=== PATIENT | male | born 1935 | race Caucasian/White ===

== ENCOUNTER → 2016-06-19 | Outpatient (CLI) | payer OTHER, MEDICARE ==
[~2016-06-19] VITALS: Ht 154.9 cm; Wt 89.6 kg
[~2016-06-19] MED LIST: ALBUAER19 INH; ASPCH81X PO; ASPI81TA28 PO; BISA10SU7 PR; CLC100X PO; FINA5TAB PO; HYDR-5688 PO; MAGNSUS5 PO; METO50TA16 PO; MULT-411 PO; OXYC-292 PO; PRLSR20 PO; RIVA1TAB4 PO; SENNTAB23 PO; TAMS0.4C59 PO; XRL10 PO
[2016-06-19 13:08] VITALS: Ht 154.9 cm; Wt 89.6 kg
--- NOTE | 2016-06-19 13:53 | PAT Medication Instructions ---
Service Date Jun 19, 2016. Current Home Medication List Albuterol Inhaler (Ventolin Inhaler), 2 PUFFS INH QID PRN Aspirin (Aspirin Ec), 81 MG PO QPM Finasteride (Proscar), 5 MG PO QPM Hydrocodone/Acetaminophen 5MG/325MG ([place] 5MG/325MG), 1 TAB PO BID Metoprolol Tartrate (Lopressor) (Lopressor), 50 MG PO QAM Multiple Vitamin (Daily Brooke), 1 TAB PO QAM Omeprazole (Prilosec), 20 MG PO Q3D Rivaroxaban (Xarelto), 20 MG PO noon Sennosides-Docusate Sodium (Stool Softener), 1 TAB PO PRN Tamsulosin Hcl (Flomax), 0.4 MG PO QPM Medication Instructions For Your Scheduled Surgery Rivaroxaban (Xarelto), 20 MG PO noon (patient will check with PCP or blood doctor for instructions - may be bridging with Lovenox) - Hold the following medications the morning of surgery: Sennosides-Docusate Sodium (Stool Softener), 1 TAB PO PRN Multiple Vitamin (Daily Brooke), 1 TAB PO QAM - Take the following medications the morning of surgery with a sip of water: Omeprazole (Prilosec), 20 MG PO Q3D Metoprolol Tartrate (Lopressor) (Lopressor), 50 MG PO QAM Hydrocodone/Acetaminophen 5MG/325MG ([place] 5MG/325MG), 1 TAB PO BID (can take up to four hours prior to surgery if needed) Albuterol Inhaler (Ventolin Inhaler), 2 PUFFS INH QID PRN (bring with you to hospital on day of surgery) - Take the following medications as scheduled the night before surgery: Tamsulosin Hcl (Flomax), 0.4 MG PO QPM Sennosides-Docusate Sodium (Stool Softener), 1 TAB PO PRN Hydrocodone/Acetaminophen 5MG/325MG ([place] 5MG/325MG), 1 TAB PO BID Finasteride (Proscar), 5 MG PO QPM Aspirin (Aspirin Ec), 81 MG PO QPM Albuterol Inhaler (Ventolin Inhaler), 2 PUFFS INH QID PRN If you have any questions please call us at [phone] or [phone] ( [facility]) or [phone]
[2016-06-19 14:43] LABS: HEMATOCRIT 26.2 % (42-52); IG% 0.3 %; LYMPH % 27.5 %; LYMPH ABS # 0.87 K/uL (1.2-3.4); MEAN CELL VOLUME 77.3 fL (80-100); MEAN CORPUSCULAR HEMOGLOBIN 23.9 pg (25-34); MEAN CORPUSCULAR HGB CONC 30.9 g/dl (32-36); MEAN PLATELET VOLUME 9.6 fL (7.4-10.4); MONO % 11.4 %; NEUT % 60.8 %; PLATELET COUNT 248 K/uL (130-400); RED BLOOD COUNT 3.39 M/uL (4.7-6.1); WHITE BLOOD COUNT 3.16 K/uL (4.8-10.8)
[2016-06-19 14:52] LABS: URINE APPEARANCE CLEAR (CLEAR); URINE BILIRUBIN NEG (NEG); URINE COLOR YELLOW; URINE NITRITE NEG (NEG); URINE SPECIFIC GRAVITY 1.015 (1.000-1.030); UROBILINOGEN NEG (NEG)
[2016-06-19 15:05] LABS: BUN/CREATININE RATIO 26.6 (10-20); CALCIUM 9.3 mg/dl (8.5-10.1); CREATININE 1.1 mg/dl (0.60-1.40); POTASSIUM 4.5 mmol/L (3.5-5.1)
[2016-06-19 15:06] LABS: INR 1.1 (0.9-1.1); PARTIAL THROMBOPLASTIN RATIO 1.2; PROTHROMBIN TIME (PATIENT) 12.2 SECONDS (9.0-12.0)
[2016-06-19 15:11] LABS: COMPLETE YES; TEAR DROP CELLS 1+
[2016-06-19 15:13] LABS: MANUAL MICROSCOPIC REQUIRED? NO; REVIEW REQ? NO
[2016-06-20 06:01] LABS: ESTIMATED AVERAGE GLUCOSE 126 mg/dl; HA1C FLAG Normal (Normal)
--- NOTE | 2016-08-25 14:15 | CODING QUERY MEDICAL NECESSITY ---
SUPPORTING DIAGNOSIS NEEDED A supporting diagnosis is required for the test/procedure performed on this patient in order for us to be reimbursed by the patient's insurance. Please provide a supporting diagnosis for the following test/procedure listed below next to the test name along with your signature. *If there is no additional diagnosis for this patient that would support the following test/procedure please document that below next to the test/procedure. Test(s)/Procedure(s) that require a supporting diagnosis: * GLYCATED HEMOGLOBIN DIAGNOSIS: * DOS: 06/19/16 Provider Signature: Date: Thank you Sherin Napier [facility] Information [facility] Once completed, please kindly fax back to [phone] For questions please call [phone]
== END | disposition home or self-care (01) ==
LOC: C.LAB 08:00 → EDSTATUS 07-16 08:15
DX: Z01.812 Encounter for preprocedural laboratory examination (principal)